=== PATIENT | male | born 1995 | race Hispanic/Latino ===

== ENCOUNTER 2020-08-03 05:21 | Emergency (ER) | payer OTHER ==
[~2020-08-03] VITALS: Ht 167.6 cm; Wt 72.6 kg
[2020-08-03 06:10] VITALS: BP 129/73
== END 2020-08-03 06:12 | disposition home or self-care (01) ==
LOC: EDH 05:21
DX: Z02.83 Encounter for blood-alcohol and blood-drug test (principal)